=== PATIENT | female | born 1955 | race Caucasian/White ===

== ENCOUNTER 2016-11-16 13:12 | Inpatient (IN) | payer MEDICAID ==
[2016-11-16] MEDS ORDERED: IOHEXOL 300MG/ML 100 ML VIAL IVP ONE (13:24)
--- NOTE | 2016-11-16 13:36 | ED Physician Chart ---
Chief Complaint/HPI - Patient Information Date Seen:: 11/16/16 Time Seen:: 13:25 Chief Complaint:: right sided abdominal pain History of Present Illness:: THIS IS A 61 YR OLD FEMALE WITH RIGHT UPPER QUADRANT PAIN FOR SEVERAL DAYS WHICH IS INCREASING. SHE STATES THAT SHE HAS MORE PAIN ON DEEP BREATHING OR COUGHING. SHE DENIES VOMITING BUT HAS BEEN NAUSEATED. SHE HAS HAD HER GALLBLADDER REMOVED BUT NO OTHER SURGERIES. THE PATIENT DENIES FEVER, DIARRHEA AND CONSTIPATION. Allergies:: Allergies Allergy/AdvReac Type Severity Reaction Status Date / Time No Known Allergies Allergy Verified 11/16/16 13:19 Vitals:: Vital Signs - 8 hr 11/16/16 13:19 Temp 98.6 F HR 96 RR 17 BP 145/61 O2 Sat % 97 Historian:: Patient, Family Member (DAUGHTER) Review:: Nurse's Note Reviewed Review of Systems - Review of Systems General/Constitutional: No fever, No chills, No weight loss, No weakness, No diaphoresis, No edema, No loss of appetite Skin: No skin lesions, No rash, No bruising Head: No headache, No light-headedness Eyes: No loss of vision, No pain, No diplopia ENT: No earache, No nasal drainage, No sore throat, No tinnitus Neck: No neck pain, No swelling, No thyromegaly, No stiffness, No mass noted Cardio Vascular: No chest pain, No palpitations, No PND, No orthopnea, No edema Pulmonary: No SOB, No cough, No sputum, No wheezing, Other (RIGHT SIDED DIAPHRAMITIC PAIN OF DEEP BREATHING.) GI: Nausea, No vomiting, No diarrhea, Pain (RIGHT SIDE OF THE ABDOMEN WITH REBOUND), No melena, No hematochezia, No constipation, No hematemesis G/U: No dysuria, No frequency, No hematuria Musculoskeletal: No bone or joint pain, No back pain, No muscle pain Endocrine: No polyuria, No polydipsia Psychiatric: No prior psych history, No depression, No anxiety, No suicidal ideation Hematopoietic: No bruising, No lymphadenopathy Allergic/Immuno: No urticaria, No angioedema Neurological: No syncope, No focal symptoms, No weakness, No paresthesia, No headache, No seizure, No dizziness, No confusion, No vertigo Past Medical History - Past Medical History Obtainable: Yes Past Medical History: HTN, DM Family History: None Social History: Non Smoker, No Alcohol, No Drug Use Surgical History: Cholecystectomy, other (THE PATIENT HAD COLON SURGERY FOR CANCER) Psychiatricy History: None Medication: Reviewed Family Medical History - Family Member Daughter Hx Family Cancer: No Hx Family Congestive Heart Failure: No Hx Family Hypertension: No Hx Family Stroke: No Hx Family Diabetes: No Hx Family Seizures: No Hx Family Dementia: No Hx Family AIDS: No Hx Family Hepatitis: No Hx Family Psychiatric Problems: No Physical Exam - Physical Examination General/Constitutional: Awake, Well-developed, well-nourished, Alert, No distress, GCS 15, Non-toxic appearing, Ambulatory Head: Atraumatic Eyes: Lids, conjuctiva normal, PERRL, EOMI Skin: Nl inspection, No rash, No skin lesions, No ecchymosis, Well hydrated, No lymphadenopathy ENMT: External ears, nose nl, Nasal exam nl, Lips, teeth, gums nl Neck: Nontender, Full ROM w/o pain, No JVD, No nuchal rigidity, No bruit, No mass, No stridor Respiratory: Nl effort/Exclusion, Clear to Auscultation, No Wheeze/Rhonchi/Rales Cardio Vascular: RRR, No murmur, gallop, rubs, NL S1 S2 GI: No organomegaly, No hernia, Normal BS's, No mass/bruits, No McBurney tenderness Other GI comments:: THERE IS TENDERNESS WITH REBOUND ON PALPATION OF THE ABDOMEN ON THE RIGHT SIDE ONLY. THE ABDOMEN IS DISTENDED : No CVA tenderness Extremities: No tenderness or effusion, Full ROM, normal strength in all extremities, No edema, Normal digits & nails Neuro/Psych: Alert/oriented, DTR's symmetric, Normal sensory exam, Normal motor strength, Judgement/insight normal, Mood normal, Normal gait, No focal deficits Misc: normal gait, Normal back, No paraspinal tenderness Labs/Radiology/EKG Results - Lab Results Results: Abnormal Lab Results 11/16/16 11/16/16 11/16/16 13:40 13:40 13:40 WBC 6.8 RBC 4.39 Hgb 13.3 Hct 39.7 MCV 90.4 MCH 30.2 MCHC Differential 33.5 RDW 11.9 Plt Count 187 MPV 8.6 Neutrophils % 52.2 Lymphocytes % 39.6 Monocytes % 7.0 Eosinophils % 0.8 Basophils % 0.4 PT 9.9 INR 0.95 PTT (Actin FS) 25.9 L Sodium Potassium Chloride Carbon Dioxide Anion Gap BUN Creatinine Est GFR ( Amer) Est GFR (Non-Af Amer) BUN/Creatinine Ratio Glucose Calcium Total Bilirubin AST ALT Alkaline Phosphatase Troponin I Total Protein Albumin Globulin Albumin/Globulin Ratio Triglycerides 121 Cholesterol 175 LDL Cholesterol Direct 109 HDL Cholesterol 58 TSH 11/16/16 11/16/16 11/16/16 13:40 13:40 13:40 WBC RBC Hgb Hct MCV MCH MCHC Differential RDW Plt Count MPV Neutrophils % Lymphocytes % Monocytes % Eosinophils % Basophils % PT INR PTT (Actin FS) Sodium 136 Potassium 3.6 Chloride 103 Carbon Dioxide 27.4 Anion Gap 9.2 BUN 12 Creatinine 0.5 L Est GFR ( Amer) > 60.0 Est GFR (Non-Af Amer) > 60.0 BUN/Creatinine Ratio 24.0 Glucose 276 H Calcium 9.6 Total Bilirubin 0.5 AST 12 L ALT 11 Alkaline Phosphatase 66 Troponin I < 0.01 L Total Protein 7.1 Albumin 4.2 Globulin 2.9 Albumin/Globulin Ratio 1.5 Triglycerides Cholesterol LDL Cholesterol Direct HDL Cholesterol TSH 1.25 - Radiology Results Results: CT SCAN OF THE ABDOMEN = POSSIBLE SMALL BOWEL OBSTRUCTION. Comments:: CHEST X-RAY= CM - EKG Interpretations EKG Time:: 16:17 Rate & Rhythm: RATE=67 PREMATURE COMPLEXES [place]: LEFT Assessment - Assessment General Assessment: ABDOMINAL PAIN AND SMALL BOWEL OBSTRUCTION ED Septic Shock - . Is Septic Shock (SBP<90, OR Lactate>4 mmol\L) present?: No - <6hrs of presentation: Vital Signs: Vital Signs - 8 hr 11/16/16 13:19 Temp 98.6 F HR 96 RR 17 BP 145/61 O2 Sat % 97 Reassessment (Disposition) - Reassessment Reassessment Condition:: Improved - Diagnosis Diagnosis:: SMALL BOWEL OBSTRUCTION STATUS POST COLON CANCER SURGERY STATUS POST CHOLECYSTECTOMY - Patient Disposition Discharge/Transfer:: Acute Care w/in this hosp Admitting Medical Physician:: Jorge Sher Condition at Disposition:: Improved ED Discharge Plan - Patient Disposition Admit/Discharge/Transfer: Acute Care w/in this hosp Condition at Disposition: Improved
[2016-11-16 13:50] LABS: % BASOPHILS 0.4 % (0.0-2.0); % EOSINOPHILS 0.8 % (0.0-5.0); % LYMPHOCYTES 39.6 % (20.0-50.0); % NEUTROPHILS 52.2 % (40.0-80.0); HEMATOCRIT 39.7 % (35.0-45.0); HEMOGLOBIN 13.3 gm/dL (11.7-15.5); MEAN CELL VOLUME 90.4 fl (81-100); MEAN CORPUSCULAR HEMOGLOBIN 30.2 pg (27.0-31.0); MEAN CORPUSCULAR HGB CONC 33.5 pg (28.0-36.0); MEAN PLATELET VOLUME 8.6 fl; NEUTROPHILE ABSOLUTE 3.5 Th/cmm (1.8-8.0); PLATELET COUNT 187 Th/cmm (150-400); RED BLOOD COUNT 4.39 Mil/cmm (3.80-5.10); RED CELL DISTRIBUTION WIDTH 11.9 % (11.5-20.0); WHITE BLOOD COUNT 6.8 Th/cmm (4.8-10.8)
[2016-11-16 14:00] LABS: PROTHROMBIN TIME (TEST) 9.9 SECONDS (9.5-11.5)
[2016-11-16 14:01] LABS: INR 0.95 (0.5-1.4)
[2016-11-16 14:14] LABS: CHOLESTEROL 175 mg/dL (<200)
[2016-11-16 14:15] LABS: TRIGLYCERIDES 121 mg/dL (<150)
--- NOTE | 2016-11-16 15:09 | Diagnostic Imaging Report ---
CT abdomen and pelvis with intravenous contrast Indication: Abdominal pain, history of colon cancer Comparison: None, Technique: Axial images were obtained from the lung bases to the bilateral proximal femurs with administration of IV contrast. Coronal reconstructions were made. total DLP: 535, CTDI 10.7 FINDINGS: Hypoventilatory and atelectatic changes of the lung bases are noted. No evidence of focal hepatic or splenic lesions. No focal pancreatic or adrenal lesions. Right renal cysts are noted measuring up to 1 cm. Additional sub-CM low-density lesions are seen to small to characterize but suggestive of cysts. Postsurgical changes of the sigmoid colon are noted. Copious amount of stool is noted. Appendix is not well-visualized. Fluid-filled loops of small bowel are also noted with few air-fluid levels. No evidence of mesenteric or retroperitoneal lymphadenopathy. No free air or free fluid. Mild atherosclerotic vascular disease. Degenerative changes of the spine are noted. IMPRESSION: Evidence of previous partial sigmoidectomy. There is copious amount of stool throughout the large bowel. Please correlate clinically for constipation. Additional gas and fluid distended loops of small bowel are also noted. Findings may be related to patient's constipation, however, inflammatory process cannot be excluded. Please correlate with clinical findings. Evidence of prior cholecystectomy. Right renal cysts. No evidence of lymphadenopathy. Atherosclerotic vascular disease.
[2016-11-16] MEDS: D5-0.45NS 1,000 ML IV SCH (18:27)
[2016-11-16] MEDS: Morphine Sulfate 2 mg/mL 1mL Syr IVP PRN (23:00)
[2016-11-17] MEDS: D5-0.45NS 1,000 ML IV SCH ×2 (06:05→16:58)
[2016-11-17 07:05] LABS: URINE BILIRUBIN NEGATIVE (NEGATIVE); URINE BLOOD NEGATIVE (NEGATIVE); URINE GLUCOSE (UA) >=1000 mg/dL (NEGATIVE); URINE KETONE NEGATIVE (NEGATIVE); URINE PROTEIN NEGATIVE (NEGATIVE); URINE UROBILINOGEN 0.2 E.U./dL (0.2 - 1.0)
[2016-11-17 07:08] LABS: URINE COLOR YELLOW
[2016-11-17 07:09] LABS: URINE BACTERIA FEW /hpf (NONE SEEN); URINE EPITHELIAL CELLS OCCASIONAL /lpf (FEW); URINE RBC NONE SEEN /hpf (0-5)
--- NOTE | 2016-11-17 08:55 | Diagnostic Imaging Report ---
Portable chest x-ray Time: 1541 History: Right-sided chest pain Allowing for portable technique the heart size is normal. No focal pulmonary parenchymal processes. No hilar or mediastinal abnormalities. Impression: No acute abnormalities.
--- NOTE | 2016-11-17 09:27 | History & Physical ---
ADMIT DATE: 11/16/2016 CHIEF COMPLAINT: Abdominal pain. HISTORY OF PRESENT ILLNESS: A 61-year-old female who presented to the ER complaining of right upper quadrant abdominal pain for several days, which is worsening. The patient's pain worse with deep breathing or coughing. The patient had some nausea, but denies vomiting. The patient had prior history of gallbladder surgery and ____ surgery. The patient denies any acute complaints. REVIEW OF SYSTEMS: See history of present illness. PAST MEDICAL HISTORY: Hypertension, diabetes, gallstones. PAST SURGICAL HISTORY: Cholecystectomy and other surgeries. ____. SOCIAL HISTORY: No reports of smoking or drug use. PSYCHIATRIC HISTORY: Negative. MEDICATIONS: See medication reconciliation form. PHYSICAL EXAMINATION: GENERAL: The patient is awake, alert, nontoxic in appearance. VITAL SIGNS: On admission, temperature 98.4, pulse 63, blood pressure 121/72, respiratory rate 18 and O2 sat 98% on room air. HEENT: Normocephalic, atraumatic. Extraocular movements intact. Oropharynx is clear. NECK: Supple, no thyromegaly. CARDIOVASCULAR: S1 and S2. No murmurs, rubs, or gallops. RESPIRATORY: Clear. No wheezes or rhonchi. GASTROINTESTINAL: Soft, diffuse tenderness, nondistended. Positive bowel sounds. GENITOURINARY: No CVA tenderness. No suprapubic tenderness. BACK: No midline tenderness. EXTREMITIES: Equal pulses bilaterally. No cyanosis, clubbing or edema. SKIN: Negative. PSYCHIATRIC: Negative. NEUROLOGIC: Cranial nerves intact. Extraocular movements intact. Sensation intact. Neurovascular is intact. Bilateral upper and lower muscles grossly normal. LABORATORY DATA: Hematology 6.8, hemoglobin 15.3, hematocrit 9.7, platelet count of 187, no left shift noted. PT 9.9, INR 0.95, PTT 11.9. Chemistry: Sodium 136, potassium 3.6, chloride 103, BUN 27, anion gap of 9.2, BUN 12, creatinine 0.5. GFR is more than 60, glucose 276. Hemoglobin A1c 10.1, calcium 9.6, total bilirubin 0.5, AST 12, ALT 11, alkaline phosphatase 56. Troponin less than 0.01. Total protein 7.1, albumin 4.2, globulin is 2.9. Triglycerides 121, cholesterol 125, LDL 109, HDL 58. TSH 1.25. Urinalysis more than 1000 glucose, trace leukocyte esterase, WBCs 6-10. RADIOLOGICAL TESTS: Pelvis CT evidence of obvious partial sigmoidectomy, copious amount of stool throughout the large bowel, ____ small bowel was also noted. IMPRESSION: 1. Small-bowel obstruction. 2. Diabetes mellitus (uncontrolled). 3. Hypertension. 4. Status post cholecystectomy. 5. Status post colon surgery. PLAN: The patient admitted to medical/surgical unit at [facility]. General Surgery consultation, Dr. Dozier will obtain further labs and consultation as needed. JOB# [id number]
[2016-11-17] MEDS: Morphine Sulfate 2 mg/mL 1mL Syr IVP PRN ×2 (14:23→18:46)
--- NOTE | 2016-11-17 14:56 | General Progress Note ---
Subjective - Review of Systems Service Date: 11/17/16 Events since last encounter: consult dictated possible SBO sbo series ordered Objective - Results Result Diagrams: 11/16/16 13:40 11/16/16 13:40 Recent Labs: Laboratory Last Values WBC 6.8 Th/cmm (4.8-10.8) 11/16/16 13:40 RBC 4.39 Mil/cmm (3.80-5.10) 11/16/16 13:40 Hgb 13.3 gm/dL (11.7-15.5) 11/16/16 13:40 Hct 39.7 % (35.0-45.0) 11/16/16 13:40 MCV 90.4 fl (81-100) 11/16/16 13:40 MCH 30.2 pg (27.0-31.0) 11/16/16 13:40 MCHC Differential 33.5 pg (28.0-36.0) 11/16/16 13:40 RDW 11.9 % (11.5-20.0) 11/16/16 13:40 Plt Count 187 Th/cmm (150-400) 11/16/16 13:40 MPV 8.6 fl 11/16/16 13:40 Neutrophils % 52.2 % (40.0-80.0) 11/16/16 13:40 Lymphocytes % 39.6 % (20.0-50.0) 11/16/16 13:40 Monocytes % 7.0 % (2.0-10.0) 11/16/16 13:40 Eosinophils % 0.8 % (0.0-5.0) 11/16/16 13:40 Basophils % 0.4 % (0.0-2.0) 11/16/16 13:40 PT 9.9 SECONDS (9.5-11.5) 11/16/16 13:40 INR 0.95 (0.5-1.4) 11/16/16 13:40 PTT (Actin FS) 25.9 SECONDS (26.0-38.0) L 11/16/16 13:40 Sodium 136 mEq/L (136-145) 11/16/16 13:40 Potassium 3.6 mEq/L (3.5-5.1) 11/16/16 13:40 Chloride 103 mEq/L (98-107) 11/16/16 13:40 Carbon Dioxide 27.4 mEq/L (21.0-31.0) 11/16/16 13:40 Anion Gap 9.2 (7.0-16.0) 11/16/16 13:40 BUN 12 mg/dL (7-25) 11/16/16 13:40 Creatinine 0.5 mg/dL (0.6-1.2) L 11/16/16 13:40 Est GFR ( Amer) > 60.0 ml/min (>90) 11/16/16 13:40 Est GFR (Non-Af Amer) > 60.0 ml/min 11/16/16 13:40 BUN/Creatinine Ratio 24.0 11/16/16 13:40 Glucose 276 mg/dL (70-105) H 11/16/16 13:40 Hemoglobin A1c % 10.1 % (4.0-6.0) H 11/16/16 13:40 Calcium 9.6 mg/dL (8.6-10.3) 11/16/16 13:40 Total Bilirubin 0.5 mg/dL (0.3-1.0) 11/16/16 13:40 AST 12 U/L (13-39) L 11/16/16 13:40 ALT 11 U/L (7-52) 11/16/16 13:40 Alkaline Phosphatase 66 U/L (34-104) 11/16/16 13:40 Troponin I < 0.01 ng/mL (0.01-0.05) L 11/16/16 13:40 Total Protein 7.1 gm/dL (6.0-8.3) 11/16/16 13:40 Albumin 4.2 gm/dL (3.7-5.3) 11/16/16 13:40 Globulin 2.9 gm/dL 11/16/16 13:40 Albumin/Globulin Ratio 1.5 (1.0-1.8) 11/16/16 13:40 Triglycerides 121 mg/dL (<150) 11/16/16 13:40 Cholesterol 175 mg/dL (<200) 11/16/16 13:40 LDL Cholesterol Direct 109 mg/dL (75-193) 11/16/16 13:40 HDL Cholesterol 58 mg/dL (23-92) 11/16/16 13:40 TSH 1.25 uIU/ml (0.34-5.60) 11/16/16 13:40 Urine Source RANDOM 11/17/16 06:14 Urine Color YELLOW 11/17/16 06:14 Urine Clarity CLEAR (CLEAR) 11/17/16 06:14 Urine pH 7.0 (4.6 - 8.0) 11/17/16 06:14 Ur Specific [place] <= 1.005 (1.005-1.030) 11/17/16 06:14 Urine Protein NEGATIVE mg/dL (NEGATIVE) 11/17/16 06:14 Urine Glucose (UA) >=1000 mg/dL (NEGATIVE) H 11/17/16 06:14 Urine Ketones NEGATIVE mg/dL (NEGATIVE) 11/17/16 06:14 Urine Blood NEGATIVE (NEGATIVE) 11/17/16 06:14 Urine Nitrate NEGATIVE (NEGATIVE) 11/17/16 06:14 Urine Bilirubin NEGATIVE (NEGATIVE) 11/17/16 06:14 Urine Urobilinogen 0.2 E.U./dL (0.2 - 1.0) 11/17/16 06:14 Ur Leukocyte Esterase TRACE (NEGATIVE) H 11/17/16 06:14 Urine RBC NONE SEEN /hpf (0-5) 11/17/16 06:14 Urine WBC 6-10 /hpf (0-5) H 11/17/16 06:14 Ur Epithelial Cells OCCASIONAL /lpf (FEW) 11/17/16 06:14 Urine Bacteria FEW /hpf (NONE SEEN) 11/17/16 06:14 RPR NONREACTIVE (NONREACTIVE) 11/16/16 13:40 - Physical Exam Vitals and I&O: Vital Signs Temp 98.2 F 11/17/16 11:43 Pulse 62 11/17/16 11:43 Resp 17 11/17/16 11:43 BP 122/57 11/17/16 11:43 Pulse Ox 98 11/17/16 11:43 Intake & Output 11/16/16 11/17/16 11/17/16 18:59 06:59 18:59 Intake Total 0 1000 Balance 0 1000 Weight (lbs) 58.967 kg 57.153 kg 57.153 kg Intake: Intake, IV Amount 1000 D5-0.45NS 1,000 ml @ 100 1000 mls/hr IV .Q10H MARIELA Rx#: [id number] Oral 0 0 Other: # Voids 2 # Bowel Movements 0 Active Medications: Current Medications Acetaminophen (Tylenol 650mg Supp) 650 mg RC Q6H PRN PRN Reason: Mild Pain/Headache/T above 101 Stop: 01/15/17 22:27 Dextrose/Sodium Chloride (D5-0.45ns) 1,000 mls @ 100 mls/hr IV .Q10H MARIELA Stop: 01/15/17 18:02 Last Admin: 11/17/16 06:05 Dose: 100 mls/hr Ketorolac Tromethamine (Toradol) 30 mg IVP Q6HR PRN PRN Reason: Pain (Moderate) Stop: 01/15/17 23:28 Last Admin: 11/17/16 06:10 Dose: 30 mg Morphine Sulfate (Morphine) 2 mg IVP Q4H PRN PRN Reason: Severe Pain Stop: 01/15/17 22:27 Last Admin: 11/17/16 14:23 Dose: 2 mg Ondansetron HCl (Zofran) 4 mg IVP Q6H PRN PRN Reason: Nausea / Vomiting Stop: 01/15/17 22:27 Assessment/Plan - Problem List Patient Problems: All Active Problems RIGHT UPPER QUADRANT PAIN (Acute) Nutritional Asmnt/Malnutr-PDOC - Dietary Evaluation Malnutrition Findings (Please click <Entered> for more info): Nutritional Asmnt/Malnutrition Start: 11/17/16 11: 44 Text: Status: Complete Freq: Document 11/17/16 11:44 DAVID (Rec: 11/17/16 11:49 DAVID PERDOMO FN) Nutritional Asmnt/Malnutrition Patient General Information Nutritional Screening High Risk Screening Diagnosis small bowel obstruction Pertinent Medical Hx/Surgical Hx HTN, DM, gallstones Subjective Information Pt sitting up in bed at time of visit and did not want to talk to RD pushing hand in a shoowing motion Current Diet Order/ Nutrition Support NPO Patient / S.O Can't verbalize diet edu Pertinent Medications zofran Pertinent Labs 11/16/16: Na 136, K 3.6, Cl 103 , CO2 27.4, BUN 12, Cr 0.5, Ca 9.6. glucsoe 276 Nutritional Hx/Data Height 1.57 m Height (Calculated Centimeters) 157.5 Current Weight (lbs) 57.153 kg Weight (Calculated Kilograms) 57.2 Weight (Calculated Grams) 41406.6 Recent Weight Change No Weight Status Approriate GI Symptoms GI Symptoms Nausea Food Allergies No Cultural/Ethnic/[employer] Belief Pt denies Usual diet at home Regular Skin Integrity/Comment: florencio adamson 18 intact Estimated Nutritional Goals BEE in Kcals: Using Current wt Calories/Kcals/Kg 25-30kcals/kg Kcals Calculated 1425-1710kcals/day Protein: Using Current wt Protein g/k.8-1g/kg Protein Calculated 46-57g/day Fluid: ml 1425-1710ml/day (1ml/kcal) Nutritional Problem 1. Problem Problem Inadequate oral intake related to Etiology increased nutrient needs Signs/Symptoms: as evidenced by NPO status. Intervention/Recommendation Comments Recommend when medically appropriate to initiate clear liquid diet and advance as tolerated to low fat diet Expected Outcomes/Goals Expected Outcomes/Goals tolerated PO intake
--- NOTE | 2016-11-17 15:08 | Consultation ---
DATE OF CONSULTATION: 11/17/2016 REFERRING PHYSICIAN: Dr. Sher. REASON FOR CONSULTATION: Abdominal pain. Thank you for referring this patient to me. HISTORY OF PRESENT ILLNESS: This is a 61-year-old female who is speaking only, who claimed that she has been having intermittent abdominal pain for the last 3 months. She had nausea and vomiting associated with these episodes. She has had episodes of constipation as well. PAST MEDICAL HISTORY: Colon surgery for carcinoma 6 years ago and apparently received chemotherapy, but no radiation. Also, gallbladder surgery 23 years ago. PAST MEDICAL HISTORY: Includes hypertension, diabetes mellitus. On this admission, the laboratory studies showed CBC to be normal. The chemistry likewise within normal limits except for blood sugar high at 276. Hemoglobin A1c is also high at 10.1. Troponins normal. The patient underwent a CT scan of the abdomen, which showed some gas and fluid distended loops of small bowel. PHYSICAL EXAMINATION: Scar of previous surgery. There is some distention and tenderness mostly on the right side of lower abdomen. IMPRESSION: Possible small bowel obstruction. RECOMMENDATIONS: Small bowel series will be ordered. We will follow with you. JOB# [id number]
[2016-11-17] MEDS ORDERED: Diatrizoate Meglumine/Diatri 30 mL Sol PO ONE (15:11)
--- NOTE | 2016-11-17 23:33 | Admit Criteria Form ---
Admit Criteria Forms - Admit Criteria Diagnosis: ABDOMINAL PAIN Clinical Indications for Admission to Inpatient Care (Place 'X' for any and all applicable criteria): Admission is indicated for ANY ONE of the following(1)(2)(3)(4)(5): [X ]I. Inpatient admission required rather than observation care (Also use Abdominal Pain: Observation Care, as appropriate) because of ANY ONE of the following: [ ]a) Severe pain requiring acute inpatient management [ ]b) Identification of etiology/finding that requires inpatient care (eg, aortic dissection, free air) [ ]c) Absent bowel sounds with complete ileus(6) [ ]d) Suspected toxic megacolon [ ]e) Severe electrolyte abnormalities requiring inpatient care [ ]f) High fever or infection requiring inpatient admission as indicated by ANY ONE of following(7)(8): [ ] i) Appropriate outpatient or observational care antimicrobial treatment unavailable, not effective, or not feasible [ ] ii) Documented bacteremia [ ] iii) Temperature > 104.9 degrees F (oral) [ ] iv) T >103.1 F (oral) or < 96.8 F(rectal) that does not respond to all emergency treatment measures [X ]g) Signs of intestinal obstruction [B] [ ]h) Hemodynamic instability [ ]i) IV fluid to replace significant ongoing losses (greater than 3 L/m2 per day) (12)(13) [ ]j) Percutaneous or open drainage (eg, abscess, biliary tract ) procedures [ ]k) Parenteral nutrition regimen that must be implemented on inpatient basis [ ]l) Other condition,treatment or monitoring requiring inpatient admission. [ ]II. Peritoneal signs present [ ]III. Surgery needed that cannot be performed on an ambulatory basis. [ ]IV. Evaluation requires patient to not eat or drink for extended period ( eg, more than 24 hours). [ ]V. Contraindications and/or Inappropriate clinical situations for Observational Care in patients with abdominal pain, when ANY ONE of the following is required: [ ]a) Thorough evaluation is required to prevent catastrophic events due to delays in diagnosing (e.g.Mesenteric ischemia) 1,3 [ ]b) Patient with severe pathology or with chronic symptoms unlikely to improve in the ED stay (3) [ ]. General contraindications and/or Inappropriate clinical situations for Observational Care in patients with abdominal pain, when ANY ONE of the following is required: [ ]a) Prediction of prolongation of LOS based on ANY ONE of the following may be considered as a contraindication for observational care 2, 3, 4, 5, 6, 7, 8, 9, 10, 11 [ ]i) Age > 65 yrs. [ ]ii) Patient arriving by ambulance [ ]iii) Patient with high acuity [ ]iv) Patient requiring vital sign monitoring [ ]v) Patient on IV medication [ ]b) Systolic blood pressures 180mmHg 3,12 [ ]c) Patient with altered mental status including delirium and other alteration of consciousness, (3) [ ]d) Patient whose discharge disposition will be to a custodial home or rehabilitation home should not be managed in Emergency Department Observation Unit. CMS rule requires 3 days hospital stay before such placement.3,13 [ ]e) Patient with failure to thrive due to broad array of etiologies 3,16,17 [ ]f) Inability to ambulate 3,14 Extended stay beyond goal length of stay may be needed for(2)(3): [ ]a) Persistent abdominal pain with suspected intra-abdominal process [ ]b) Diagnosed condition requiring continued stay (e.g., pancreatitis, complicated diverticulitis) [ ]c) Surgery (e.g., colectomy) The original [employer] [facility] content created by [employer] has been revised. The portions of the content which have been revised are identified through the use of italic text or in bold, and [employer] has neither reviewed nor approved the modified material.All other unmodified content is copyright [employer]. Please see references footnoted in the original [facility] edition 2016 Admit Criteria Met?: Yes
[2016-11-18] MEDS: Morphine Sulfate 2 mg/mL 1mL Syr IVP PRN (04:48)
[2016-11-18] MEDS: D5-0.45NS 1,000 ML IV SCH ×3 (04:49→23:23)
[2016-11-18 05:36] LABS: % BASOPHILS 0.2 % (0.0-2.0); % LYMPHOCYTES 21.1 % (20.0-50.0); % MONOCYTES 5.2 % (2.0-10.0); % NEUTROPHILS 72.5 % (40.0-80.0); HEMATOCRIT 37.5 % (35.0-45.0); HEMOGLOBIN 12.7 gm/dL (11.7-15.5); MEAN CELL VOLUME 90.8 fl (81-100); MEAN CORPUSCULAR HEMOGLOBIN 30.8 pg (27.0-31.0); MEAN PLATELET VOLUME 9.4 fl; NEUTROPHILE ABSOLUTE 6.4 Th/cmm (1.8-8.0); PLATELET COUNT 173 Th/cmm (150-400); RED BLOOD COUNT 4.13 Mil/cmm (3.80-5.10); RED CELL DISTRIBUTION WIDTH 11.8 % (11.5-20.0)
[2016-11-18 06:00] LABS: WHITE BLOOD COUNT 8.9 Th/cmm (4.8-10.8)
[2016-11-18 06:02] LABS: ANION GAP 8.7 (7.0-16.0); BUN - UREA NITROGEN 10 mg/dL (7-25); CARBON DIOXIDE 24.9 mEq/L (21.0-31.0); CHLORIDE 108 mEq/L (98-107); CREATININE - SERUM 0.5 mg/dL (0.6-1.2); GLUCOSE 257 mg/dL (70-105); POTASSIUM SERUM 3.6 mEq/L (3.5-5.1); SODIUM SERUM 138 mEq/L (136-145)
--- NOTE | 2016-11-18 08:39 | General Progress Note ---
Subjective - Review of Systems Service Date: 11/18/16 Events since last encounter: SBO series in progress patient in pain Objective - Results Result Diagrams: 11/18/16 05:00 11/18/16 05:00 Recent Labs: Laboratory Last Values WBC 8.9 Th/cmm (4.8-10.8) D 11/18/16 05:00 RBC 4.13 Mil/cmm (3.80-5.10) 11/18/16 05:00 Hgb 12.7 gm/dL (11.7-15.5) 11/18/16 05:00 Hct 37.5 % (35.0-45.0) 11/18/16 05:00 MCV 90.8 fl (81-100) 11/18/16 05:00 MCH 30.8 pg (27.0-31.0) 11/18/16 05:00 MCHC Differential 34.0 pg (28.0-36.0) 11/18/16 05:00 RDW 11.8 % (11.5-20.0) 11/18/16 05:00 Plt Count 173 Th/cmm (150-400) 11/18/16 05:00 MPV 9.4 fl 11/18/16 05:00 Neutrophils % 72.5 % (40.0-80.0) 11/18/16 05:00 Lymphocytes % 21.1 % (20.0-50.0) 11/18/16 05:00 Monocytes % 5.2 % (2.0-10.0) 11/18/16 05:00 Eosinophils % 1.0 % (0.0-5.0) 11/18/16 05:00 Basophils % 0.2 % (0.0-2.0) 11/18/16 05:00 PT 9.9 SECONDS (9.5-11.5) 11/16/16 13:40 INR 0.95 (0.5-1.4) 11/16/16 13:40 PTT (Actin FS) 25.9 SECONDS (26.0-38.0) L 11/16/16 13:40 Sodium 138 mEq/L (136-145) 11/18/16 05:00 Potassium 3.6 mEq/L (3.5-5.1) 11/18/16 05:00 Chloride 108 mEq/L (98-107) H 11/18/16 05:00 Carbon Dioxide 24.9 mEq/L (21.0-31.0) 11/18/16 05:00 Anion Gap 8.7 (7.0-16.0) 11/18/16 05:00 BUN 10 mg/dL (7-25) 11/18/16 05:00 Creatinine 0.5 mg/dL (0.6-1.2) L 11/18/16 05:00 Est GFR ( Amer) > 60.0 ml/min (>90) 11/18/16 05:00 Est GFR (Non-Af Amer) > 60.0 ml/min 11/18/16 05:00 BUN/Creatinine Ratio 20.0 11/18/16 05:00 Glucose 257 mg/dL (70-105) H 11/18/16 05:00 Hemoglobin A1c % 10.1 % (4.0-6.0) H 11/16/16 13:40 Calcium 9.0 mg/dL (8.6-10.3) 11/18/16 05:00 Total Bilirubin 0.5 mg/dL (0.3-1.0) 11/16/16 13:40 AST 12 U/L (13-39) L 11/16/16 13:40 ALT 11 U/L (7-52) 11/16/16 13:40 Alkaline Phosphatase 66 U/L (34-104) 11/16/16 13:40 Troponin I < 0.01 ng/mL (0.01-0.05) L 11/16/16 13:40 Total Protein 7.1 gm/dL (6.0-8.3) 11/16/16 13:40 Albumin 4.2 gm/dL (3.7-5.3) 11/16/16 13:40 Globulin 2.9 gm/dL 11/16/16 13:40 Albumin/Globulin Ratio 1.5 (1.0-1.8) 11/16/16 13:40 Triglycerides 121 mg/dL (<150) 11/16/16 13:40 Cholesterol 175 mg/dL (<200) 11/16/16 13:40 LDL Cholesterol Direct 109 mg/dL (75-193) 11/16/16 13:40 HDL Cholesterol 58 mg/dL (23-92) 11/16/16 13:40 TSH 1.25 uIU/ml (0.34-5.60) 11/16/16 13:40 Urine Source RANDOM 11/17/16 06:14 Urine Color YELLOW 11/17/16 06:14 Urine Clarity CLEAR (CLEAR) 11/17/16 06:14 Urine pH 7.0 (4.6 - 8.0) 11/17/16 06:14 Ur Specific [place] <= 1.005 (1.005-1.030) 11/17/16 06:14 Urine Protein NEGATIVE mg/dL (NEGATIVE) 11/17/16 06:14 Urine Glucose (UA) >=1000 mg/dL (NEGATIVE) H 11/17/16 06:14 Urine Ketones NEGATIVE mg/dL (NEGATIVE) 11/17/16 06:14 Urine Blood NEGATIVE (NEGATIVE) 11/17/16 06:14 Urine Nitrate NEGATIVE (NEGATIVE) 11/17/16 06:14 Urine Bilirubin NEGATIVE (NEGATIVE) 11/17/16 06:14 Urine Urobilinogen 0.2 E.U./dL (0.2 - 1.0) 11/17/16 06:14 Ur Leukocyte Esterase TRACE (NEGATIVE) H 11/17/16 06:14 Urine RBC NONE SEEN /hpf (0-5) 11/17/16 06:14 Urine WBC 6-10 /hpf (0-5) H 11/17/16 06:14 Ur Epithelial Cells OCCASIONAL /lpf (FEW) 11/17/16 06:14 Urine Bacteria FEW /hpf (NONE SEEN) 11/17/16 06:14 RPR NONREACTIVE (NONREACTIVE) 11/16/16 13:40 - Physical Exam Vitals and I&O: Vital Signs Temp 98.5 F 11/18/16 04:00 Pulse 92 11/18/16 04:00 Resp 18 11/18/16 04:00 BP 137/85 11/18/16 04:00 Pulse Ox 99 11/18/16 04:00 Intake & Output 11/17/16 11/18/16 11/18/16 18:59 06:59 18:59 Intake Total 1000 1000 Balance 1000 1000 Weight (lbs) 57.153 kg Intake: Intake, IV Amount 1000 1000 D5-0.45NS 1,000 ml @ 100 1000 1000 mls/hr IV .Q10H [facility]IELA Rx#: [id number] Other: Stool Characteristics Formed Brown Active Medications: Current Medications Acetaminophen (Tylenol 650mg Supp) 650 mg RC Q6H PRN PRN Reason: Mild Pain/Headache/T above 101 Stop: 01/15/17 22:27 Dextrose/Sodium Chloride (D5-0.45ns) 1,000 mls @ 100 mls/hr IV .Q10H [facility] Stop: 01/15/17 18:02 Last Admin: 11/18/16 04:49 Dose: 100 mls/hr Ketorolac Tromethamine (Toradol) 30 mg IVP Q6HR PRN PRN Reason: Pain (Moderate) Stop: 01/15/17 23:28 Last Admin: 11/17/16 20:33 Dose: 30 mg Morphine Sulfate (Morphine) 2 mg IVP Q4H PRN PRN Reason: Severe Pain Stop: 01/15/17 22:27 Last Admin: 11/18/16 04:48 Dose: 2 mg Ondansetron HCl (Zofran) 4 mg IVP Q6H PRN PRN Reason: Nausea / Vomiting Stop: 01/15/17 22:27 Last Admin: 11/17/16 20:33 Dose: 4 mg Assessment/Plan - Problem List Patient Problems: All Active Problems RIGHT UPPER QUADRANT PAIN (Acute) Nutritional Asmnt/Malnutr-PDOC - Dietary Evaluation Malnutrition Findings (Please click <Entered> for more info): Nutritional Asmnt/Malnutrition Start: 11/17/16 11: 44 Text: Status: Complete Freq: Document 11/17/16 11:44 DAVID (Rec: 11/17/16 11:49 DAVID PERDOMO FN) Nutritional Asmnt/Malnutrition Patient General Information Nutritional Screening High Risk Screening Diagnosis small bowel obstruction Pertinent Medical Hx/Surgical Hx HTN, DM, gallstones Subjective Information Pt sitting up in bed at time of visit and did not want to talk to RD pushing hand in a shoowing motion Current Diet Order/ Nutrition Support NPO Patient / S.O Can't verbalize diet edu Pertinent Medications zofran Pertinent Labs 11/16/16: Na 136, K 3.6, Cl 103 , CO2 27.4, BUN 12, Cr 0.5, Ca 9.6. glucsoe 276 Nutritional Hx/Data Height 1.57 m Height (Calculated Centimeters) 157.5 Current Weight (lbs) 57.153 kg Weight (Calculated Kilograms) 57.2 Weight (Calculated Grams) 85948.6 Recent Weight Change No Weight Status Approriate GI Symptoms GI Symptoms Nausea Food Allergies No Cultural/Ethnic/Adventism Belief Pt denies Usual diet at home Regular Skin Integrity/Comment: florencio adamson 18 intact Estimated Nutritional Goals BEE in Kcals: Using Current wt Calories/Kcals/Kg 25-30kcals/kg Kcals Calculated 1425-1710kcals/day Protein: Using Current wt Protein g/k.8-1g/kg Protein Calculated 46-57g/day Fluid: ml 1425-1710ml/day (1ml/kcal) Nutritional Problem 1. Problem Problem Inadequate oral intake related to Etiology increased nutrient needs Signs/Symptoms: as evidenced by NPO status. Intervention/Recommendation Comments Recommend when medically appropriate to initiate clear liquid diet and advance as tolerated to low fat diet Expected Outcomes/Goals Expected Outcomes/Goals tolerated PO intake
--- NOTE | 2016-11-18 08:40 | Diagnostic Imaging Report ---
Exam: Small bowel follow-through HISTORY: Obstruction Findings: Portable summation of the abdomen demonstrates some multiple metallic clips the right upper quadrant status post cholecystectomy. Large amount of fecal content in the right colon is noted. Uterine bladder distended with contrast material Findings: Following administration of oral contrast the study demonstrates normal progression of contrast material throughout the small bowel with reflux into the colon There is no evidence for small bowel obstruction. IMPRESSION: Normal small bowel follow-through, no evidence for small bowel obstruction.
[2016-11-18] MEDS ORDERED: Magnesium Hydroxide (MOM) 30 mL UDC PO PRN (11:36)
[2016-11-18] MEDS ORDERED: Hydrocodone/APAP 5mg/325mg Tab PO PRN (11:36)
[2016-11-18] MEDS ORDERED: Fleet Enema 135 mL RC PRN (11:36)
[2016-11-18] MEDS ORDERED: Maalox 30 mL Cup PO PRN (11:36)
[2016-11-18] MEDS ORDERED: VTE Chemical Prophylaxis Screen/Admission MC PRN (13:46)
[2016-11-18] MEDS: Hydrocodone/APAP 10 mg/325 mg Tab PO PRN ×2 (17:12→23:22)
[2016-11-18] MEDS ORDERED: Polyvinyl Alcohol Ophth Soln 15 mL Bottle EACH EYE PRN (18:21)
--- NOTE | 2016-11-18 22:41 | Progress Notes ---
DATE: 11/18/2016 SUBJECTIVE: The patient is awake, alert. The patient complains of diffuse abdominal pain. The patient has been started on clear liquid diet. OBJECTIVE: VITAL SIGNS: Temperature is 98.4, pulse 54, blood pressure 122/63, respirations 18. The patient is on room air. CARDIOVASCULAR: S1, S2. RESPIRATORY: Clear. ABDOMEN: Soft, diffuse tenderness, nondistended. Positive bowel sounds. LABORATORY DATA: Hematology: WBC of 18.9, hemoglobin is 12.7, hematocrit 37.5, platelet count of 173. Chemistry: Sodium 138, potassium 3.6, chloride 108, bicarbonate 24, anion gap 8.7, BUN 10, creatinine 0.5. GFR is more than 60, glucose 257, calcium is 9. MICROBIOLOGY: Blood culture from 11/16/2016 shows no growth. RADIOLOGY: Small bowel series show normal small bowel follow through, no evidence of small bowel obstruction. ASSESSMENT: 1. Abdominal pain. 2. Constipation. 3. Possible gastritis. 4. Small bowel obstruction, resolved. 5. Diabetes mellitus. 6. Hypertension. 7. Status post cholecystectomy, status post colon surgery. PLAN: Continue current medication and treatment. We will start the patient on H2 gayla, PPI for gastritis. We will start the patient on laxatives and stool-softener for constipation. We will obtain GI consultation. Further recommendations per consult. Thank you very much. JOB# [id number]
[2016-11-19] MEDS: Hydrocodone/APAP 10 mg/325 mg Tab PO PRN ×3 (06:08→23:16)
[2016-11-19] MEDS: D5-0.45NS 1,000 ML IV SCH ×2 (06:12→17:42)
[2016-11-19 06:16] LABS: ALB/GLOB RATIO 1.2 (1.0-1.8); ALKALINE PHOSPHATASE 45 U/L (34-104); ANION GAP 6.8 (7.0-16.0); BILIRUBIN,TOTAL 0.6 mg/dL (0.3-1.0); BUN - UREA NITROGEN 4 mg/dL (7-25); CALCIUM SERUM 8.5 mg/dL (8.6-10.3); CARBON DIOXIDE 25.1 mEq/L (21.0-31.0); CHLORIDE 108 mEq/L (98-107); CREATININE - SERUM 0.5 mg/dL (0.6-1.2); GLUCOSE 241 mg/dL (70-105); POTASSIUM SERUM 3.9 mEq/L (3.5-5.1); SGOT 24 U/L (13-39); SGPT/ALT 22 U/L (7-52); SODIUM SERUM 136 mEq/L (136-145)
[2016-11-19 07:16] LABS: % BASOPHILS 0.4 % (0.0-2.0); % EOSINOPHILS 3.7 % (0.0-5.0); % MONOCYTES 6.7 % (2.0-10.0); % NEUTROPHILS 45.2 % (40.0-80.0); HEMATOCRIT 35.5 % (35.0-45.0); MEAN CORPUSCULAR HGB CONC 33.7 pg (28.0-36.0); MEAN PLATELET VOLUME 8.5 fl; NEUTROPHILE ABSOLUTE 2.1 Th/cmm (1.8-8.0); PLATELET COUNT 164 Th/cmm (150-400); RED BLOOD COUNT 3.85 Mil/cmm (3.80-5.10); RED CELL DISTRIBUTION WIDTH 11.8 % (11.5-20.0)
[2016-11-19 07:18] LABS: WHITE BLOOD COUNT 4.6 Th/cmm (4.8-10.8)
--- NOTE | 2016-11-19 08:38 | General Progress Note ---
Subjective - Review of Systems Service Date: 11/19/16 Events since last encounter: SBO series negative start increasing diet Objective - Results Result Diagrams: 11/19/16 07:00 11/19/16 05:15 Recent Labs: Laboratory Last Values WBC 4.6 Th/cmm (4.8-10.8) L D 11/19/16 07:00 RBC 3.85 Mil/cmm (3.80-5.10) 11/19/16 07:00 Hgb 12.0 gm/dL (11.7-15.5) 11/19/16 07:00 Hct 35.5 % (35.0-45.0) 11/19/16 07:00 MCV 92.0 fl (81-100) 11/19/16 07:00 MCH 31.0 pg (27.0-31.0) 11/19/16 07:00 MCHC Differential 33.7 pg (28.0-36.0) 11/19/16 07:00 RDW 11.8 % (11.5-20.0) 11/19/16 07:00 Plt Count 164 Th/cmm (150-400) 11/19/16 07:00 MPV 8.5 fl 11/19/16 07:00 Neutrophils % 45.2 % (40.0-80.0) 11/19/16 07:00 Lymphocytes % 44.0 % (20.0-50.0) 11/19/16 07:00 Monocytes % 6.7 % (2.0-10.0) 11/19/16 07:00 Eosinophils % 3.7 % (0.0-5.0) 11/19/16 07:00 Basophils % 0.4 % (0.0-2.0) 11/19/16 07:00 PT 9.9 SECONDS (9.5-11.5) 11/16/16 13:40 INR 0.95 (0.5-1.4) 11/16/16 13:40 PTT (Actin FS) 25.9 SECONDS (26.0-38.0) L 11/16/16 13:40 Sodium 136 mEq/L (136-145) 11/19/16 05:15 Potassium 3.9 mEq/L (3.5-5.1) 11/19/16 05:15 Chloride 108 mEq/L (98-107) H 11/19/16 05:15 Carbon Dioxide 25.1 mEq/L (21.0-31.0) 11/19/16 05:15 Anion Gap 6.8 (7.0-16.0) L 11/19/16 05:15 BUN 4 mg/dL (7-25) L 11/19/16 05:15 Creatinine 0.5 mg/dL (0.6-1.2) L 11/19/16 05:15 Est GFR ( Amer) > 60.0 ml/min (>90) 11/19/16 05:15 Est GFR (Non-Af Amer) > 60.0 ml/min 11/19/16 05:15 BUN/Creatinine Ratio 8.0 11/19/16 05:15 Glucose 241 mg/dL (70-105) H 11/19/16 05:15 POC Glucose 234 MG/DL (70 - 105) H 11/18/16 11:18 Hemoglobin A1c % 10.1 % (4.0-6.0) H 11/16/16 13:40 Calcium 8.5 mg/dL (8.6-10.3) L 11/19/16 05:15 Total Bilirubin 0.6 mg/dL (0.3-1.0) 11/19/16 05:15 AST 24 U/L (13-39) 11/19/16 05:15 ALT 22 U/L (7-52) 11/19/16 05:15 Alkaline Phosphatase 45 U/L (34-104) 11/19/16 05:15 Troponin I < 0.01 ng/mL (0.01-0.05) L 11/16/16 13:40 Total Protein 5.6 gm/dL (6.0-8.3) L 11/19/16 05:15 Albumin 3.1 gm/dL (3.7-5.3) L 11/19/16 05:15 Globulin 2.5 gm/dL 11/19/16 05:15 Albumin/Globulin Ratio 1.2 (1.0-1.8) 11/19/16 05:15 Triglycerides 121 mg/dL (<150) 11/16/16 13:40 Cholesterol 175 mg/dL (<200) 11/16/16 13:40 LDL Cholesterol Direct 109 mg/dL (75-193) 11/16/16 13:40 HDL Cholesterol 58 mg/dL (23-92) 11/16/16 13:40 TSH 1.25 uIU/ml (0.34-5.60) 11/16/16 13:40 Urine Source RANDOM 11/17/16 06:14 Urine Color YELLOW 11/17/16 06:14 Urine Clarity CLEAR (CLEAR) 11/17/16 06:14 Urine pH 7.0 (4.6 - 8.0) 11/17/16 06:14 Ur Specific [place] <= 1.005 (1.005-1.030) 11/17/16 06:14 Urine Protein NEGATIVE mg/dL (NEGATIVE) 11/17/16 06:14 Urine Glucose (UA) >=1000 mg/dL (NEGATIVE) H 11/17/16 06:14 Urine Ketones NEGATIVE mg/dL (NEGATIVE) 11/17/16 06:14 Urine Blood NEGATIVE (NEGATIVE) 11/17/16 06:14 Urine Nitrate NEGATIVE (NEGATIVE) 11/17/16 06:14 Urine Bilirubin NEGATIVE (NEGATIVE) 11/17/16 06:14 Urine Urobilinogen 0.2 E.U./dL (0.2 - 1.0) 11/17/16 06:14 Ur Leukocyte Esterase TRACE (NEGATIVE) H 11/17/16 06:14 Urine RBC NONE SEEN /hpf (0-5) 11/17/16 06:14 Urine WBC 6-10 /hpf (0-5) H 11/17/16 06:14 Ur Epithelial Cells OCCASIONAL /lpf (FEW) 11/17/16 06:14 Urine Bacteria FEW /hpf (NONE SEEN) 11/17/16 06:14 RPR NONREACTIVE (NONREACTIVE) 11/16/16 13:40 - Physical Exam Vitals and I&O: Vital Signs Temp 98.4 F 11/19/16 03:45 Pulse 57 11/19/16 03:45 Resp 17 11/19/16 03:45 BP 107/58 11/19/16 03:45 Pulse Ox 97 11/19/16 03:45 Intake & Output 11/18/16 11/19/16 11/19/16 18:59 06:59 18:59 Intake Total 1639.568 5967.000 Balance 7065.669 6732.000 Weight (lbs) 57.153 kg 57.606 kg Intake: Intake, IV Amount 696.945 6547.000 D5-0.45NS 1,000 ml @ 100 331.044 3702.000 mls/hr IV .Q10H MARIELA Rx#: [id number] Oral 120 240 Other: # Bowel Movements 1 Stool Characteristics Soft Soft Brown Active Medications: Current Medications Acetaminophen (Tylenol) 650 mg PO Q6H PRN PRN Reason: Mild Pain/Headache/T above 101 Stop: 01/17/17 11:35 Last Admin: 11/18/16 20:01 Dose: 650 mg Acetaminophen/Hydrocodone Bitart ([place] 10 Mg/325 Mg) 1 tab PO Q6H PRN PRN Reason: Pain (Severe) Stop: 01/17/17 11:35 Last Admin: 11/19/16 06:08 Dose: 1 tab Acetaminophen/Hydrocodone Bitart ([place] 5mg/325mg) 1 tab PO Q6H PRN PRN Reason: Moderate Pain Stop: 01/17/17 11:35 Al Hydrox/Mg Hydrox/Simethicone (Maalox) 30 ml PO Q6H PRN PRN Reason: Dyspepsia Stop: 01/17/17 11:35 Artificial Tears (Artificial Tears Ophth Soln) 1 drop EACH EYE Q4HR PRN PRN Reason: Dry Eye Stop: 01/17/17 18:20 Docusate Sodium (Colace) 100 mg PO BID [facility] Stop: 01/17/17 16:59 Last Admin: 11/19/16 08:27 Dose: 100 mg Famotidine (Pepcid) 20 mg PO BID [facility] Stop: 01/17/17 16:59 Last Admin: 11/19/16 08:27 Dose: 20 mg Dextrose/Sodium Chloride (D5-0.45ns) 1,000 mls @ 100 mls/hr IV .Q10H MARIELA Stop: 01/15/17 18:02 Last Admin: 11/19/16 06:12 Dose: 100 mls/hr Magnesium Hydroxide (Milk Of Magnesia) 30 ml PO HS PRN PRN Reason: Constipation Stop: 01/17/17 11:35 Miscellaneous (Vte Chemical Prophylaxis Screen/ Admission) 1 ea [facility] PRN PRN PRN Reason: PROTOCOL Stop: 01/17/17 13:45 Ondansetron HCl (Zofran) 4 mg IVP Q6H PRN PRN Reason: Nausea / Vomiting Stop: 01/15/17 22:27 Last Admin: 11/17/16 20:33 Dose: 4 mg Psyllium Hydrophilic Mucilloid (Metamucil) 1 pkt PO TID MARIELA Stop: 01/17/17 13:59 Last Admin: 11/19/16 08:27 Dose: 1 pkt Sodium Phosphate (Fleet Enema) 135 ml RC DAILY PRN PRN Reason: Constipation Stop: 01/17/17 11:35 Assessment/Plan - Problem List Patient Problems: All Active Problems RIGHT UPPER QUADRANT PAIN (Acute) Nutritional Asmnt/Malnutr-PDOC - Dietary Evaluation Malnutrition Findings (Please click <Entered> for more info): Nutritional Asmnt/Malnutrition Start: 11/17/16 11: 44 Text: Status: Complete Freq: Document 11/17/16 11:44 DAVID (Rec: 11/17/16 11:49 DAVID CONOR- [email or web address]) Nutritional Asmnt/Malnutrition Patient General Information Nutritional Screening High Risk Screening Diagnosis small bowel obstruction Pertinent Medical Hx/Surgical Hx HTN, DM, gallstones Subjective Information Pt sitting up in bed at time of visit and did not want to talk to RD pushing hand in a shoowing motion Current Diet Order/ Nutrition Support NPO Patient / S.O Can't verbalize diet edu Pertinent Medications zofran Pertinent Labs 11/16/16: Na 136, K 3.6, Cl 103 , CO2 27.4, BUN 12, Cr 0.5, Ca 9.6. glucsoe 276 Nutritional Hx/Data Height 1.57 m Height (Calculated Centimeters) 157.5 Current Weight (lbs) 57.153 kg Weight (Calculated Kilograms) 57.2 Weight (Calculated Grams) 22818.6 Recent Weight Change No Weight Status Approriate GI Symptoms GI Symptoms Nausea Food Allergies No Cultural/Ethnic/Anglican Belief Pt denies Usual diet at home Regular Skin Integrity/Comment: florencio adamson 18 intact Estimated Nutritional Goals BEE in Kcals: Using Current wt Calories/Kcals/Kg 25-30kcals/kg Kcals Calculated 1425-1710kcals/day Protein: Using Current wt Protein g/k.8-1g/kg Protein Calculated 46-57g/day Fluid: ml 1425-1710ml/day (1ml/kcal) Nutritional Problem 1. Problem Problem Inadequate oral intake related to Etiology increased nutrient needs Signs/Symptoms: as evidenced by NPO status. Intervention/Recommendation Comments Recommend when medically appropriate to initiate clear liquid diet and advance as tolerated to low fat diet Expected Outcomes/Goals Expected Outcomes/Goals tolerated PO intake
[2016-11-20] MEDS: D5-0.45NS 1,000 ML IV SCH ×2 (04:27→21:54)
[2016-11-20 05:20] LABS: % BASOPHILS 0.7 % (0.0-2.0); % EOSINOPHILS 3.5 % (0.0-5.0); % LYMPHOCYTES 41.1 % (20.0-50.0); % MONOCYTES 7.7 % (2.0-10.0); HEMATOCRIT 35.1 % (35.0-45.0); HEMOGLOBIN 11.9 gm/dL (11.7-15.5); MEAN CORPUSCULAR HEMOGLOBIN 30.9 pg (27.0-31.0); MEAN PLATELET VOLUME 8.9 fl; NEUTROPHILE ABSOLUTE 2.3 Th/cmm (1.8-8.0); PLATELET COUNT 157 Th/cmm (150-400); RED BLOOD COUNT 3.85 Mil/cmm (3.80-5.10); RED CELL DISTRIBUTION WIDTH 11.6 % (11.5-20.0); WHITE BLOOD COUNT 4.9 Th/cmm (4.8-10.8)
[2016-11-20 05:39] LABS: INR 0.98 (0.5-1.4); PROTHROMBIN TIME (TEST) 10.2 SECONDS (9.5-11.5)
[2016-11-20 05:43] LABS: ALB/GLOB RATIO 1.2 (1.0-1.8); ALKALINE PHOSPHATASE 58 U/L (34-104); ANION GAP 6.8 (7.0-16.0); BILIRUBIN,TOTAL 0.5 mg/dL (0.3-1.0); CALCIUM SERUM 8.6 mg/dL (8.6-10.3); CARBON DIOXIDE 25.5 mEq/L (21.0-31.0); CHLORIDE 107 mEq/L (98-107); CREATININE - SERUM 0.5 mg/dL (0.6-1.2); GLUCOSE 238 mg/dL (70-105); POTASSIUM SERUM 3.3 mEq/L (3.5-5.1); SGOT 18 U/L (13-39); SGPT/ALT 22 U/L (7-52); SODIUM SERUM 136 mEq/L (136-145)
[2016-11-20 05:54] LABS: BUN - UREA NITROGEN < 2 mg/dL (7-25)
[2016-11-20] MEDS: POLYETHYLENE GLYCOL 3350 17 GM PACK PO SCH ×2 (07:36→09:07)
[2016-11-20] MEDS: KCL 20mEq/100mL Premix 20 MEQ/100 ML PIGGYBACK IV SCH ×2 (07:40→18:47)
--- NOTE | 2016-11-20 08:56 | Diagnostic Imaging Report ---
Portable chest x-ray Time: 0 845 History: Preop Allowing for portable technique the heart size is normal. No focal pulmonary parenchymal processes. No hilar or mediastinal abnormalities. Impression: No acute abnormalities.
[2016-11-20] MEDS ORDERED: Potassium Chloride 40 MEQ, Lidocaine 1% 20mL Vial 25 MG in Sodium Chloride 0.9% 250 ML IV ONE (09:00)
--- NOTE | 2016-11-20 09:29 | Diagnostic Imaging Report ---
Exam: Ultrasound examination the abdomen. HISTORY: Right upper quadrant pain Findings: Real-time ultrasound examination of the abdomen was performed in multiple planes. The study demonstrates heterogeneous echo architecture liver parenchyma throughout. No focal lesions appreciated. Patient has had previous cholecystectomy. The common bile duct is normal at 7 mm. Pancreas not seen. The kidneys demonstrate no evidence of obstructive uropathy or nephrolithiasis. Right kidney measures 9.4 x 5.2 x 5.5 cm. Left kidney measures 9.8 x 4.4 x 5 cm. The spleen is intact. No free fluid is noted. IMPRESSION: 1. Limited examination due to large amount of intra-abdominal bowel gas 2. Status post cholecystectomy. Unremarkable examination of the abdomen.
--- NOTE | 2016-11-20 11:42 | Progress Notes ---
DATE: 11/20/2016 SUBJECTIVE: The patient is awake and alert. The patient complains of abdominal pain. The patient is cleared for EGD today. OBJECTIVE: VITAL SIGNS: Temperature 98.3, pulse 59, blood pressure 111/57, respirations 20, and O2 is 100% on room air. CARDIOVASCULAR: S1, S2. RESPIRATORY: Clear. ABDOMEN: Soft, diffuse tenderness, and nondistended. Positive bowel sounds. LABORATORY DATA: Hematology: WBC 4.9, hemoglobin 11.9, hematocrit 38.1, and platelet count 157. ____. PT 10.2, INR 0.98, and PTT 24. Chemistry: Sodium 136, potassium 3.3, chloride ____, bicarbonate 25, ____, creatinine 0.5, GFR is more than 60, glucose 238, and calcium 8.6. ____. AST 18, ALT 22, alkaline phosphatase 58, total protein 5.7, albumin 3.1, and globulin 2.6. MICROBIOLOGY: Blood culture from 11/16/2016 shows no growth. MRSA screen 11/16/2016 negative. Urine culture 11/17/2016 showed mixed urogenital [place]. ASSESSMENT: 1. Abdominal pain. 2. Constipation. 3. Small bowel obstruction, resolved. 4. Diabetes mellitus. 5. Hypertension. 6. Status post cholecystectomy. 7. Status post colon surgery. 8. Hypokalemia. 9. Hyperglycemia. 10. Hypoalbuminemia. 11. Protein-calorie malnutrition (moderate to severe). PLAN: Continue current medication and treatment. EGD today. ____. Thank you very much. JOB# [id number]
[2016-11-20] MEDS: INSULIN ASPART SLIDING SCALE 100 UNITS/ML UNIT SUBQ SCH ×3 (12:03→22:00)
--- NOTE | 2016-11-20 15:06 | Consultation ---
DATE OF CONSULTATION: 11/19/2016 REASON FOR CONSULTATION: Right upper quadrant pain. CONSULTING PHYSICIAN: Dr. Jorge Sher. HISTORY OF PRESENT ILLNESS: The patient is a 61-year-old female with past medical history of type 2 diabetes, cholelithiasis, hypertension who had presented to the Emergency Room on 11/16/2016, complaining of right upper quadrant pain for several days. The patient reports that she has actually been suffering right upper quadrant pain for 2-3 months, intermittent in nature, although unaffected by eating or having bowel movements. She notes that she was vomiting as well when she came into the Emergency Room on 11/16/2016, although denies any blood in her vomit. The patient denies any blood in her stool. She notes that she has been feeling more constipated recently and has not been having regular bowel movements. The patient underwent a CT scan in the Emergency Room, which showed dilated loops of small bowel and thus Surgery consultation was obtained to evaluate for small-bowel obstruction. A small bowel follow-through study then revealed no evidence of small bowel obstruction and normal contrast through the small bowel into the colon. A CT scan did show copious amount of stool, however, in the colon and the patient has been placed on Fleet Enemas as needed as well as milk of magnesia as needed. The patient reports today that she is still experiencing her right upper quadrant pain, although may be somewhat less in intensity since her admission. PAST MEDICAL HISTORY: Hypertension, type 2 diabetes, and gallstones. PAST SURGICAL HISTORY: Cholecystectomy and sigmoidectomy for colon cancer 6 years previously. FAMILY HISTORY: Noncontributory. SOCIAL HISTORY: The patient denies alcohol or cigarette use. ALLERGIES: No known drug allergies. REVIEW OF SYSTEMS: A review of systems was performed and was negative aside from the pertinent positives as mentioned in the history of present illness. PHYSICAL EXAMINATION: VITAL SIGNS: Show blood pressure 116/62, pulse rate of 59, temperature 98.6 Fahrenheit, 97% oxygen saturation on room air. GENERAL: The patient is sitting upright in bed, anxious. Alert and oriented x 3. HEENT: No scleral icterus. Pupils are equal and reactive. Moist mucous membranes. NECK: No JVD, no thyromegaly, and no lymphadenopathy. CHEST: Clear to auscultation bilaterally. ABDOMEN: Soft and nontender to light palpation. Tender to deep palpation in the right upper quadrant. No guarding. No rebound. Positive bowel sounds. EXTREMITIES: No pitting edema. Positive pulses. Full range of motion. NEUROLOGIC: Nonfocal exam. SKIN: No rashes and no jaundice. LABORATORY DATA: White count 6.8, hemoglobin 13.3, platelet 187.000. INR is 0.95. Sodium 138, potassium 3.6, BUN 10, creatinine 0.5, total bilirubin 0.6, AST 24, ALT 22, alkaline phosphatase 45, and albumin 3.1. IMAGING STUDIES: CT abdomen and pelvis was performed on 11/16/2016 that showed evidence of previous partial sigmoidectomy, copious amount of stool in the large bowel, gas and fluid, distended loops of small bowel are noted, and evidence of cholecystectomy. A small bowel follow through was performed on 11/17/2016 that showed normal small bowel follow through with normal progression of contrast material through the small bowel into the colon. IMPRESSION: This is a 61-year-old female with past medical history of hypertension, type 2 diabetes, colon cancer with sigmoidectomy 6 years ago, who is presenting with acute on chronic right upper quadrant pain and vomiting for 2 or 3 days. 1. Right upper quadrant pain. 2. Nausea and vomiting. 3. History of colon cancer. DISCUSSION: The patient's admission CT scan shows evidence of obstipation, which likely is the cause of her symptoms of nausea and vomiting and distended small bowel loops. Small bowel follow through that was performed on the day after admission appeared normal without evidence of obstruction. The patient does have a history of colon cancer, although she notes that her last colonoscopy was only 6 months ago performed at [facility] and was negative for any polyps or recurrence of cancer. Thus, I do not suspect that she has a cancer now as a cause of her symptoms. Chronic obstipation can cause abdominal pain including right upper quadrant pain and that should be the leading diagnosis at this time, although other possibilities include choledocholithiasis or hepatitis, although these are unlikely given the fact she has had her gallbladder taken out previously and her liver tests are normal. PLAN: 1. We will get upper endoscopy tomorrow given the fact that the patient has been having ongoing pain with a burning component as well to evaluate for gastritis as well as esophageal issues. 2. We will give additional laxatives with MiraLax to help relieve her obstipation and hopefully relieve her symptoms. 3. We will encourage the use of her p.r.n. enemas as already ordered. 4. She may require PPIs, but will defer until after endoscopy tomorrow. Thank you for allowing me to participate in the care of this patient. Please call with any further questions. JOB# [id number]
--- NOTE | 2016-11-20 15:28 | Operative Report ---
DATE OF SURGERY: 11/20/2016 PROCEDURE: Esophagogastroduodenoscopy with biopsy. PREOPERATIVE DIAGNOSIS: Abdominal pain. POSTOPERATIVE DIAGNOSIS: Gastritis. ENDOSCOPIST: Candelario Blanton M.D. INDICATIONS: The patient is a 61-year-old female with past medical history significant for colon cancer, status post resection who had presented with obstipation and epigastric burning pain and right upper quadrant pain. The patient is here for endoscopic evaluation. CONSENT: Informed consent was obtained. The patient was explained the risks and benefits of the procedure including but not limited to bleeding, infection, perforation, need for surgery, cardiopulmonary complications and . The patient indicated understanding of these risks and signed the consent form. The patient was deemed to be a good candidate for conscious sedation. ANESTHESIA: General anesthesia was used. DESCRIPTION OF PROCEDURE: The patient was connected to the appropriate monitoring devices and general anesthesia was administered. The patient was placed in the left lateral decubitus position. Mouthpiece inserted and secured after the incurrence of general anesthesia. Scope was introduced into the mouth and passed under direct visualization without difficulty into the esophagus, the stomach and the duodenum. The scope was then slowly withdrawn towards the mouth and the mucosal surface was carefully examined. The patient tolerated the procedure well and there were no obvious complications. FINDINGS: Esophagus: The esophagus appeared largely normal. There were no ulcers, esophagitis or mass lesions. The GE junction was located at 35 cm from the incisors. Stomach: The stomach appeared somewhat atrophic, although there were no mass lesions, ulcerations or erosions. The GE junction was consistent with Hill grade 1 on retroflexion. Biopsies were taken from the antrum, angularis for histology. Duodenum: The bulb and the second portion of the duodenum appeared normal. IMPRESSION: Largely normal exam of the esophagus, stomach and duodenum, although slightly atrophic appearance of the stomach. RECOMMENDATIONS: We will follow up biopsy results for H. pylori and will treat if positive. Continue PPI therapy for symptomatic relief. At this point, continue aggressive bowel regimen to prevent further constipation. Thank you for allowing me to participate in the care of this patient. Please call with any further questions. JOB# [id number]
[2016-11-21 06:31] LABS: % BASOPHILS 0.2 % (0.0-2.0); % EOSINOPHILS 2.7 % (0.0-5.0); % LYMPHOCYTES 33.8 % (20.0-50.0); % MONOCYTES 7.9 % (2.0-10.0); % NEUTROPHILS 55.4 % (40.0-80.0); HEMATOCRIT 37.3 % (35.0-45.0); HEMOGLOBIN 12.6 gm/dL (11.7-15.5); MEAN CELL VOLUME 91.4 fl (81-100); MEAN CORPUSCULAR HEMOGLOBIN 30.8 pg (27.0-31.0); MEAN CORPUSCULAR HGB CONC 33.7 pg (28.0-36.0); MEAN PLATELET VOLUME 9.2 fl; NEUTROPHILE ABSOLUTE 3.1 Th/cmm (1.8-8.0); PLATELET COUNT 175 Th/cmm (150-400); RED BLOOD COUNT 4.08 Mil/cmm (3.80-5.10); RED CELL DISTRIBUTION WIDTH 11.7 % (11.5-20.0); WHITE BLOOD COUNT 5.8 Th/cmm (4.8-10.8)
[2016-11-21] MEDS: INSULIN ASPART SLIDING SCALE 100 UNITS/ML UNIT SUBQ SCH ×2 (06:39→12:17)
[2016-11-21 07:15] LABS: ANION GAP 7.3 (7.0-16.0); BUN - UREA NITROGEN 3 mg/dL (7-25); CARBON DIOXIDE 25.9 mEq/L (21.0-31.0); CHLORIDE 107 mEq/L (98-107); CREATININE - SERUM 0.5 mg/dL (0.6-1.2); GLUCOSE 246 mg/dL (70-105); POTASSIUM SERUM 3.2 mEq/L (3.5-5.1); SODIUM SERUM 137 mEq/L (136-145)
[2016-11-21] MEDS: D5-0.45NS 1,000 ML IV SCH (08:37)
[2016-11-21] MEDS: POLYETHYLENE GLYCOL 3350 17 GM PACK PO SCH (08:38)
[2016-11-21] MEDS ORDERED: Potassium Chloride 20 mEq ER Tab PO ONE (10:23)
--- NOTE | 2016-11-21 10:59 | GI Progress Note ---
Subjective - Review of Systems Service Date: 11/21/16 Subjective: Pt feels much better this AM, is having brown non bloody BMs. No vomiting Objective - Results Result Diagrams: 11/21/16 05:55 11/21/16 05:55 Recent Labs: Laboratory Last Values WBC 5.8 Th/cmm (4.8-10.8) 11/21/16 05:55 RBC 4.08 Mil/cmm (3.80-5.10) 11/21/16 05:55 Hgb 12.6 gm/dL (11.7-15.5) 11/21/16 05:55 Hct 37.3 % (35.0-45.0) 11/21/16 05:55 MCV 91.4 fl (81-100) 11/21/16 05:55 MCH 30.8 pg (27.0-31.0) 11/21/16 05:55 MCHC Differential 33.7 pg (28.0-36.0) 11/21/16 05:55 RDW 11.7 % (11.5-20.0) 11/21/16 05:55 Plt Count 175 Th/cmm (150-400) 11/21/16 05:55 MPV 9.2 fl 11/21/16 05:55 Neutrophils % 55.4 % (40.0-80.0) 11/21/16 05:55 Lymphocytes % 33.8 % (20.0-50.0) 11/21/16 05:55 Monocytes % 7.9 % (2.0-10.0) 11/21/16 05:55 Eosinophils % 2.7 % (0.0-5.0) 11/21/16 05:55 Basophils % 0.2 % (0.0-2.0) 11/21/16 05:55 PT 10.2 SECONDS (9.5-11.5) 11/20/16 05:08 INR 0.98 (0.5-1.4) 11/20/16 05:08 PTT (Actin FS) 24.0 SECONDS (26.0-38.0) L 11/20/16 05:08 Sodium 137 mEq/L (136-145) 11/21/16 05:55 Potassium 3.2 mEq/L (3.5-5.1) L 11/21/16 05:55 Chloride 107 mEq/L (98-107) 11/21/16 05:55 Carbon Dioxide 25.9 mEq/L (21.0-31.0) 11/21/16 05:55 Anion Gap 7.3 (7.0-16.0) 11/21/16 05:55 BUN 3 mg/dL (7-25) L 11/21/16 05:55 Creatinine 0.5 mg/dL (0.6-1.2) L 11/21/16 05:55 Est GFR ( Amer) > 60.0 ml/min (>90) 11/21/16 05:55 Est GFR (Non-Af Amer) > 60.0 ml/min 11/21/16 05:55 BUN/Creatinine Ratio 6.0 11/21/16 05:55 Glucose 246 mg/dL (70-105) H 11/21/16 05:55 POC Glucose 219 MG/DL (70 - 105) H 11/20/16 21:16 Hemoglobin A1c % 10.1 % (4.0-6.0) H 11/16/16 13:40 Calcium 9.0 mg/dL (8.6-10.3) 11/21/16 05:55 Total Bilirubin 0.5 mg/dL (0.3-1.0) 11/20/16 05:08 AST 18 U/L (13-39) 11/20/16 05:08 ALT 22 U/L (7-52) 11/20/16 05:08 Alkaline Phosphatase 58 U/L (34-104) 11/20/16 05:08 Troponin I < 0.01 ng/mL (0.01-0.05) L 11/16/16 13:40 Total Protein 5.7 gm/dL (6.0-8.3) L 11/20/16 05:08 Albumin 3.1 gm/dL (3.7-5.3) L 11/20/16 05:08 Globulin 2.6 gm/dL 11/20/16 05:08 Albumin/Globulin Ratio 1.2 (1.0-1.8) 11/20/16 05:08 Triglycerides 121 mg/dL (<150) 11/16/16 13:40 Cholesterol 175 mg/dL (<200) 11/16/16 13:40 LDL Cholesterol Direct 109 mg/dL (75-193) 11/16/16 13:40 HDL Cholesterol 58 mg/dL (23-92) 11/16/16 13:40 TSH 1.25 uIU/ml (0.34-5.60) 11/16/16 13:40 Urine Source RANDOM 11/17/16 06:14 Urine Color YELLOW 11/17/16 06:14 Urine Clarity CLEAR (CLEAR) 11/17/16 06:14 Urine pH 7.0 (4.6 - 8.0) 11/17/16 06:14 Ur Specific [place] <= 1.005 (1.005-1.030) 11/17/16 06:14 Urine Protein NEGATIVE mg/dL (NEGATIVE) 11/17/16 06:14 Urine Glucose (UA) >=1000 mg/dL (NEGATIVE) H 11/17/16 06:14 Urine Ketones NEGATIVE mg/dL (NEGATIVE) 11/17/16 06:14 Urine Blood NEGATIVE (NEGATIVE) 11/17/16 06:14 Urine Nitrate NEGATIVE (NEGATIVE) 11/17/16 06:14 Urine Bilirubin NEGATIVE (NEGATIVE) 11/17/16 06:14 Urine Urobilinogen 0.2 E.U./dL (0.2 - 1.0) 11/17/16 06:14 Ur Leukocyte Esterase TRACE (NEGATIVE) H 11/17/16 06:14 Urine RBC NONE SEEN /hpf (0-5) 11/17/16 06:14 Urine WBC 6-10 /hpf (0-5) H 11/17/16 06:14 Ur Epithelial Cells OCCASIONAL /lpf (FEW) 11/17/16 06:14 Urine Bacteria FEW /hpf (NONE SEEN) 11/17/16 06:14 RPR NONREACTIVE (NONREACTIVE) 11/16/16 13:40 Blood Type O POSITIVE 11/20/16 05:08 Antibody Screen NEGATIVE 11/20/16 05:08 - Physical Exam Vitals and I&O: Vital Signs Temp 98.1 F 11/21/16 08:00 Pulse 54 11/21/16 08:00 Resp 18 11/21/16 08:00 BP 123/53 11/21/16 08:00 Pulse Ox 96 11/21/16 08:00 Intake & Output 11/20/16 11/21/16 11/21/16 18:59 06:59 18:59 Intake Total 1000 1000 Balance 1000 1000 Weight (lbs) 57.153 kg 56.744 kg Intake: Intake, IV Amount 1000 1000 D5-0.45NS 1,000 ml @ 100 1000 1000 mls/hr IV .Q10H MARIELA Rx#: [id number] Other: # Voids 2 # Bowel Movements 0 Stool Characteristics Soft Active Medications: Current Medications Acetaminophen (Tylenol) 650 mg PO Q6H PRN PRN Reason: Mild Pain/Headache/T above 101 Stop: 01/17/17 11:35 Last Admin: 11/18/16 20:01 Dose: 650 mg Acetaminophen/Hydrocodone Bitart ([place] 10 Mg/325 Mg) 1 tab PO Q6H PRN PRN Reason: Pain (Severe) Stop: 01/17/17 11:35 Last Admin: 11/19/16 23:16 Dose: 1 tab Acetaminophen/Hydrocodone Bitart ([place] 5mg/325mg) 1 tab PO Q6H PRN PRN Reason: Moderate Pain Stop: 01/17/17 11:35 Last Admin: 11/20/16 19:52 Dose: 1 tab Al Hydrox/Mg Hydrox/Simethicone (Maalox) 30 ml PO Q6H PRN PRN Reason: Dyspepsia Stop: 01/17/17 11:35 Artificial Tears (Artificial Tears Ophth Soln) 1 drop EACH EYE Q4HR PRN PRN Reason: Dry Eye Stop: 01/17/17 18:20 Docusate Sodium (Colace) 100 mg PO BID MARIELA Stop: 01/17/17 16:59 Last Admin: 11/21/16 08:38 Dose: 100 mg Famotidine (Pepcid) 20 mg PO BID MARIELA Stop: 01/17/17 16:59 Last Admin: 11/21/16 08:39 Dose: 20 mg Dextrose/Sodium Chloride (D5-0.45ns) 1,000 mls @ 100 mls/hr IV .Q10H MARIELA Stop: 01/15/17 18:02 Last Admin: 11/21/16 08:37 Dose: 100 mls/hr Insulin Aspart (Novolog Insulin Sliding Scale) 0 units SUBQ ACHS MARIELA PRN Reason: Protocol Stop: 01/19/17 11:29 Last Admin: 11/21/16 06:39 Dose: Not Given Magnesium Hydroxide (Milk Of Magnesia) 30 ml PO HS PRN PRN Reason: Constipation Stop: 01/17/17 11:35 Metoclopramide HCl (Reglan) 10 mg PO ACHS MARIELA Stop: 01/18/17 20:59 Last Admin: 11/21/16 06:56 Dose: 10 mg Miscellaneous (Vte Chemical Prophylaxis Screen/ Admission) 1 ea MC PRN PRN PRN Reason: PROTOCOL Stop: 01/17/17 13:45 Ondansetron HCl (Zofran) 4 mg IVP Q6H PRN PRN Reason: Nausea / Vomiting Stop: 01/15/17 22:27 Last Admin: 11/19/16 08:43 Dose: 4 mg Polyethylene Glycol (Miralax) 17 gm PO DAILY MARIELA Stop: 01/18/17 16:14 Last Admin: 11/21/16 08:38 Dose: 17 gm Psyllium Hydrophilic Mucilloid (Metamucil) 1 pkt PO TID MARIELA Stop: 01/17/17 13:59 Last Admin: 11/21/16 08:38 Dose: 1 pkt Sodium Phosphate (Fleet Enema) 135 ml RC DAILY PRN PRN Reason: Constipation Stop: 01/17/17 11:35 General: Alert, Oriented x3 HEENT: Atraumatic, PERRLA Neck: Supple Cardiovascular: Normal S1, Normal S2 Abdomen: Soft, Other (non tender, no guarding, no rebound) Skin: no Rash, no Breakdown, no Significant lesion, no Other Assessment/Plan - Problem List Patient Problems: All Active Problems RIGHT UPPER QUADRANT PAIN (Acute) - Plan Plan: # RUQ pain # Nausea/vomiting # Constipation EGD performed on 11/20 which was largely normal, biopsy from antrum pending. Suspect that the pt's presenting symptoms were due to obstipation, and she feels improved after multiple BMs # Hx of colon ca Pt had surveillance colonoscopy 6 mo ago. Due again in 3-5 years depending on those findings Thank you for allowing me to participate in the care of this patient.
--- NOTE | 2016-11-21 11:01 | Discharge Summary ---
DATE OF DISCHARGE: 11/21/2016 DISCHARGE DIAGNOSES: 1. Abdominal pain secondary to constipation and dyspepsia ____. 2. Constipation. 3. Dyspepsia. 4. Small-bowel obstruction, resolved. 5. Diabetes mellitus. 6. Hypertension. 7. Status post cholecystectomy, status post colon surgery. 8. Hypokalemia. 9. Hyperglycemia. 10. Hypoalbuminemia. 11. Protein-calorie malnutrition, moderate to severe. HOSPITAL COURSE: The patient is a female who presented to the ER complaining of lower quadrant abdominal pain. The patient was admitted with diagnosis of small bowel obstruction, diabetes mellitus, uncontrolled, hypertension, status post cholecystectomy, status post colon surgery. The patient admitted to medical/surgical unit. CONSULTATION OBTAINED. General Surgery consultation obtained from Dr. Dozier who recommended the patient does not require any surgical intervention at this time. GI consultation obtained from Dr. Castro for patient's continued abdominal pain. PROCEDURE: The patient had, on admission, abdomen and pelvis CT performed, which showed evidence of ____ showed possible small-bowel obstruction. The patient had a small bowel x-ray done on 11/17, showed no evidence of a small-bowel obstruction. The patient's EGD done on 11/20/2016, which was essentially negative. The patient will be discharged home today. The patient will continue home medications. The patient will be given prescription for constipation and dyspepsia. The patient will follow up with PMD, PCP or Dr. Rio Sher in one week's time. JOB# [id number]
--- NOTE | 2016-11-21 11:31 | Progress Notes ---
DATE: 11/19/2016 SUBJECTIVE: The patient is awake, alert. The patient is with abdominal pain. The patient complains of nausea. PHYSICAL EXAMINATION: VITAL SIGNS: Temperature 98.4, pulse 67, blood pressure 107/58, respirations 17, and O2 sat 98% on room air. CARDIOVASCULAR: S1 and S2. RESPIRATORY: Clear. ABDOMEN: Soft. Diffuse tenderness. Nondistended. Positive bowel sounds. LABORATORY DATA: Hematology; WBC 4.6, hemoglobin 12.0, hematocrit 35.2, platelet count of 164, no left shift noted. Chemistry: Sodium 136, potassium 3.9, chloride 108, bicarbonate 25, anion gap of 6.8, BUN 4, creatinine 0.5. GFR is more than 60, glucose is 241, calcium 8.5. Total bili 0.6, AST 24, ALT 22, alkaline phosphatase 45, total protein 5.6, albumin 3.1, globulin 2.5. MICROBIOLOGY: Blood culture from 11/16/2016 shows no growth. MRSA screening from 11/16/2016 negative. Urine culture from 11/17/2016 shows mixed urogenital [place]. ASSESSMENT: 1. Abdominal pain. 2. Constipation. 3. Small-bowel obstruction, resolved. 4. Diabetes mellitus and hypertension. 5. Status post cholecystectomy. Status post colon surgery. PLAN: Continue current medication and treatment. Obtain labs in a.m. We will advance diet. Awaiting GI consultation. Further recommendations per consult. Thank you very much. JOB# [id number]
--- NOTE | 2016-11-21 22:55 | Progress Notes ---
DATE: 11/21/2016 SUBJECTIVE: The patient is awake, alert. The patient is tolerating p.o. intake. The patient complains of epigastric pain. The patient underwent EGD yesterday. PHYSICAL EXAMINATION: VITAL SIGNS: Temperature 98.2, pulse 56, blood pressure 131/66, respirations 19, O2 sat 94% on room air. CARDIOVASCULAR: S1 and S2. RESPIRATORY: Clear. ABDOMEN: Soft, mild epigastric tenderness. Nondistended. Positive bowel sounds. LABORATORY DATA: Hematology: WBC 5.8, hemoglobin 12.6 and hematocrit 37.3, platelet count 165, no left shift noted. Chemistry: Sodium 137, potassium 3.2, chloride 97, bicarb 25, anion gap 7.3, BUN 3, creatinine 0.5. GFR is more than 60, glucose is 246, calcium 9.0. MICROBIOLOGY: Blood culture from 11/16 shows no growth. MRSA screening from 11/16/2016 negative. Urine culture from 11/17/2016 shows mixed urogenital [place]. EGD report from 11/20/2016 shows largely normal exam of the esophagus, stomach and duodenum, slight atrophic appearance of the stomach. ASSESSMENT: 1. Abdominal pain. 2. Constipation. 3. Small-bowel obstruction, resolved. 4. Status post cholecystectomy. 5. Status post colon surgery. 5. Protein calorie malnutrition, presently moderate to severe. 6. Hypokalemia. 7. Hyperglycemia. 8. Hypertension. 9. Diabetes mellitus. PLAN: Continue current medication and treatment. brokerage office manager for discharge planning. We will correct potassium deficiency. JOB# [id number]
--- NOTE | 2016-11-22 14:24 | Pathology Report ---
[id number] Collection Date: 11/20/2016 Surgeon: Dr. Rio Blanton Specimen Description: Antrum biopsy Gross Description: Received in formalin is a single fragment of malave soft tissue measuring 0.1 cm in greatest dimension. Totally submitted in one cassette. Microscopic Description: The histologic sections show gastric mucosa with chronic inflammation present consisting of lymphocytes and plasma cells. The Giemsa stain shows no evidence for Helicobacter pylori. Diagnosis: 1. Chronic gastritis, antrum biopsy. 2. The Giemsa stain is negative for Helicobacter pylori. [facility]# [id number] [facility]
== END 2016-11-21 15:00 | disposition home or self-care (01) | DRG 251 ==
LOC: ER 13:12 → MSI 15:30
PROVIDERS: ADMIT Preventive Medicine Preventive Medicine/Occupational Environmental Medicine; ATTEND Preventive Medicine Preventive Medicine/Occupational Environmental Medicine
PROC: 0DB68ZX Excision of Stomach, Via Natural or Artificial Opening Endoscopic, Diagnostic (ICD-10-PCS; principal; 2016-11-20)
DX: R10.13 Epigastric pain (principal); E43 Unspecified severe protein-calorie malnutrition; K59.00 Constipation, unspecified; E11.65 Type 2 diabetes mellitus with hyperglycemia; I10 Essential (primary) hypertension; K29.70 Gastritis, unspecified, without bleeding; E87.6 Hypokalemia; Z68.22 Body mass index [BMI] 22.0-22.9, adult; Z85.038 Personal history of other malignant neoplasm of large intestine; Z90.49 Acquired absence of other specified parts of digestive tract
CPT/HCPCS: 36415-UA; 71010-TC; 74250-TC; 76700-TC; 80048-TC; 80053-TC; 80061-TC; 81001-TC; 82948-90; 83036-90; 84443-TC; 84484-TC; 85025-TC; 85610-TC; 85730-TC; 86592-TC; 86850-TC; 86900-TC; 86901-TC; 87086-90; 88305-90; 88312-90; 93005; J1815; J1885; J2001; J2060; J2270; J2405; J2704; J3480; J7042; Q9967; Z7610